=== PATIENT | male | born 1990 | race Caucasian/White ===

== ENCOUNTER 2020-11-23 13:37 | Emergency (ER) | payer SELFPAY ==
[~2020-11-23] VITALS: Ht 188 cm; Wt 90.9 kg
[2020-11-23 14:13] VITALS: BP 152/66
--- NOTE | 2020-11-23 14:24 | PHYS DOC ---
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 Patient states last night he slept with his contacts in the left eye. He states he woke up this morning and noted his left pupil was bigger than the right pupil. He states during this process he also had moved from dark room to a light room. He states he removed his contacts and both pupils were same size. Patient denies any symptoms right now. He states he has a slight 1 out of 10 headache that is not unusual for him. Denies any injuries. Denies any vision loss. Review of Systems: Review of Systems: Constitutional: Denies fever or chills. [] Eyes: Reports left pupil being larger than the right pupil. Denies change in visual acuity. [] HENT: Denies nasal congestion or sore throat. [] Respiratory: Denies cough or shortness of breath. [] Cardiovascular: Denies chest pain or edema. [] GI: Denies abdominal pain, nausea, vomiting, bloody stools or diarrhea. [] : Denies dysuria. [] Musculoskeletal: Denies back pain or joint pain. [] Integument: Denies rash. [] Neurologic: Reports slight headache, denies focal weakness or sensory changes. [] Psychiatric: Denies depression or anxiety. [] Heart Score: C/O Chest Pain: N/A Risk Factors: Risk Factors: DM, Current or recent (<one month) smoker, HTN, HLP, family history of CAD, obesity. Risk Scores: Score 0 - 3: 2.5% MACE over next 6 weeks - Discharge Home Score 4 - 6: 20.3% MACE over next 6 weeks - Admit for Clinical Observation Score 7 - 10: 72.7% MACE over next 6 weeks - Early Invasive Strategies Allergies: Allergies: Allergies Coded Allergies Type Severity Reaction Last Updated Verified No Known Drug Allergies 11/23/20 No Physical Exam: PE: Constitutional: Well developed, well nourished, no acute distress, non-toxic appearance. [] HENT: Normocephalic, atraumatic, bilateral external ears normal, oropharynx moist, no oral exudates, nose normal. [] Eyes: PERRLA, EOMI, inner chambers are normal. Conjunctiva normal, no discharge. [] Neck: Normal range of motion, no tenderness, supple, no stridor. [] Cardiovascular:Heart rate regular rhythm, no murmur [] Lungs & Thorax: Bilateral breath sounds clear to auscultation [] Abdomen: Bowel sounds normal, soft, no tenderness, no masses, no pulsatile masses. [] Skin: Warm, dry, no erythema, no rash. [] Back: No tenderness, no CVA tenderness. [] Extremities: No tenderness, no cyanosis, no clubbing, ROM intact, no edema. [] Neurologic: Alert and oriented X 3, normal motor function, normal sensory function, no focal deficits noted. [] Psychologic: Affect normal, judgement normal, mood normal. [] Current Patient Data: Vital Signs: Vital Signs Date Time Temp Pulse Resp B/P (MAP) Pulse Ox O2 Delivery O2 Flow Rate FiO2 11/23/20 13:50 98.7 64 16 139/70 (93) 97 Room Air 98.7 EKG: EKG: [] Radiology/Procedures: Radiology/Procedures: [] Course & Med Decision Making: Course & Med Decision Making Pertinent Labs and Imaging studies reviewed. (See chart for details) This is a 30-year-old male patient presented to the ED today complaining his left pupil was larger than the right pupil, this occurred sometime this morning when he woke up. He had slept in his contacts. He also had moved from a dark room to a light room when this occurred. He removed his contacts and his pupils were equal. On exam in the ED patient's pupils were equal and reactive to light bilaterally. Patient was reassured, discharged to home. Follow-up with his own physician office assistant. Damon Disclaimer: Damon Disclaimer: This electronic medical record was generated, in whole or in part, using a voice recognition dictation system. Departure Departure Impression: Primary Impression: Vision exam without abnormal findings Additional Impression: Headache Qualified Codes: R51.9 - Headache, unspecified Disposition: HOME / SELF CARE / HOMELESS Condition: STABLE Referrals: DELILAH BLUM MD Please follow-up with your eye doctor or the provided physician office assistant Patient Instructions: Headache, FAQs, Visual Disturbances Additional Instructions: You were evaluated in the emergency room, both of pupils are the same size. Pl ease follow-up with the provided physician office assistant or your own physician office assistant. Come back to the ED at any point you have concerning symptoms. You can take Tylenol for your headache YOLANDA SALAS APRN Nov 23, 2020 14:24
== END 2020-11-23 14:30 | disposition home or self-care (01) ==
LOC: ER 13:37
DX: Z01.00 Encounter for examination of eyes and vision without abnormal findings (principal); R51.9 Headache, unspecified
CPT/HCPCS: 99282